=== PATIENT | male | born 1980 | race Hispanic/Latino ===

== ENCOUNTER 2017-01-15 07:45 | Observation (INO) | payer SELFPAY ==
--- NOTE | 2017-01-15 11:23 | HP ---
DATE OF ADMISSION: 01/15/2017 HISTORY OF PRESENT ILLNESS: A 36-year-old man presented to emergency department in [place]. The patient gives a history of insidious onset of periumbilical abdominal pain which started approximately 36 hours. Pain was rated at 5-6/10 onset, described as crampy without any radiation. Pain is now in the right lower quadrant where it has persisted. This pain is associated with multiple episodes of nausea, but no emesis. The patient denies any diarrhea or unexplained weight loss. He reports some chills since this morning. He has been anorexic, last meal was yesterday. Workup here was suspicious for acute appendicitis for which patient was transferred to [facility] in [place], [place] for followup care. At the time of my evaluation, the patient reports pain now at 7/10 and is generalized. He denies any fevers. PAST MEDICAL HISTORY: Significant for epilepsy. SURGICAL HISTORY: Denies any previous surgeries. SOCIAL HISTORY: He is employed as manual labor at a local ranch. He denies any cigarette smoking, ethanol or illicit drug abuse. FAMILY HISTORY: Patient denies any family history of diabetes mellitus, hypertension, heart disease or cancer. CURRENT MEDICATIONS: He takes Tegretol 400 mg q.a.m. and 200 mg q.p.m. ALLERGIES: Patient denies any known drug allergies. REVIEW OF SYSTEMS: Ten point review of systems essentially unremarkable except for as stated in past medical history and chief complaint. PHYSICAL EXAMINATION: GENERAL: This reveals a 36-year-old normally developed man who is otherwise coherent and interactive and appears stated age. The patient is alert and oriented x3, appears to be in moderate acute distress secondary to abdominal pain. VITAL SIGNS: Includes blood pressure 128/77, pulse 69, respiration 18, temperature 98.2 degrees Fahrenheit, oxygen saturation 98% on room air. HEENT: Examination reveals normocephalic and atraumatic. Pupils are equal, round, and reactive to light and accommodation. Extraocular muscles are intact bilaterally. No sclerae icterus is present. Oral mucosa is pink and moist. No lesions are noted. NECK: Supple. No palpable lymphadenopathy or thyromegaly present. HEART: Reveals regular rate and rhythm, no murmurs or gallops auscultated. LUNGS: Clear to auscultation bilaterally. Breathing is regular and unlabored. ABDOMEN: Soft and protuberant. He has diffuse tenderness to palpation, worse in the right lower quadrant. He has a positive rebound. Liver and spleen are otherwise nonpalpable below costal margins. EXTREMITIES: Reveals 2+ radial and pedal pulses bilaterally. He has no ankle edema present. NEUROLOGIC: Reveals no focal deficits present. LABORATORY DATA AND IMAGING: Pertinent laboratory findings today includes CBC of 10 in [place] with 11,300 white blood cells, hemoglobin 15.2, hematocrit is 44.3, and platelet count is 180,000. Metabolic profile today includes sodium 141, potassium 3.6, chloride is 101, bicarbonate 32, BUN 15, creatinine is 0.79, glucose 106. AST and ALT are both normal at 33 and 34 respectively. Serum amylase is normal at 51. I have reviewed the CT scan of the abdomen and pelvis which is remarkable for dilated retrocecal appendix with periappendiceal fat stranding. Although I do not see any pneumoperitoneum, there is a small amount of free fluid associated with this inflammatory process. IMPRESSION: Acute appendicitis with localized peritonitis and likely perforation. PLAN: Laparoscopic appendectomy. Above findings and plan have been discussed with the patient who indicates understanding of information given. I have advised him of the risks and benefits of the proposed surgery. Risks include, but not limited to bleeding, infection, injury to bowel and surrounding structures. The patient indicates understanding of this information and has given consent for this admission and surgical intervention. GRISELDA
[2017-01-15] MEDS ORDERED: Ondansetron HCl/PF 4 MG/2 ML Vial ONE (12:22)
[2017-01-15] MEDS ORDERED: Succinylcholine Chloride 20 MG/ML 10 ml SYRINGE FS ONE (12:22)
[2017-01-15] MEDS ORDERED: Dexamethasone 20 MG/5 ML VIAL ONE (12:22)
[2017-01-15] MEDS ORDERED: Lidocaine 2% PF 10 ML AMP (For Epidural Use) ONE (12:22)
[2017-01-15] MEDS ORDERED: Propofol 200 MG/20 ML VIAL ONE (12:22)
[2017-01-15] MEDS ORDERED: Ondansetron HCl/PF 4 MG/2 ML Vial IVP PRN ×2 (13:59→14:06)
[2017-01-15] MEDS ORDERED: Dextrose 5% in Water 1,000 ML IV PRN (13:59)
[2017-01-15] MEDS ORDERED: Dextrose 50% Abboject 50 ML SYRINGE SLOW IVP PRN (13:59)
[2017-01-15] MEDS ORDERED: Promethazine HCl 25 MG/ML VIAL IM PRN ×2 (13:59→14:06)
[2017-01-15] MEDS ORDERED: traMADol HCl 50 MG TAB PO PRN ×2 (14:01)
[2017-01-15] MEDS ORDERED: Promethazine HCl 25 MG/ML VIAL SLOW IVP PRN (14:06)
[2017-01-15] MEDS ORDERED: HYDROmorphone 2 MG/ML VIAL SLOW IVP PRN (14:06)
[2017-01-15 16:21] VITALS: BMI 27.2
[2017-01-15] MEDS: Ketorolac Tromethamine 30 MG/ML VIAL IVP SCH ×2 (18:22→23:44)
[2017-01-15] MEDS: Acetaminophen 500 MG TAB PO SCH ×2 (18:23→23:44)
[2017-01-15] MEDS: Piperacillin/Tazobactam 3.375 GM in Sodium Chloride 0.9% 100 ML IVPB SCH ×2 (18:25→23:45)
--- NOTE | 2017-01-15 18:56 | OP ---
DATE OF PROCEDURE: 01/15/2017 PREOPERATIVE DIAGNOSIS: Acute appendicitis with generalized peritonitis. POSTOPERATIVE DIAGNOSIS: Acute appendicitis with generalized peritonitis. SURGERY PERFORMED: Laparoscopic appendectomy. SURGEON: Aron Giron D.O. ANESTHESIA: General endotracheal. ESTIMATED BLOOD LOSS: 10 mL FLUIDS GIVEN: 1300 mL crystalloids. SPONGE AND INSTRUMENT COUNT: Certified as correct x2. COMPLICATIONS: None apparent at the time of operation. INDICATIONS FOR PROCEDURE: A 36-year-old man presented with abdominal pain. Clinical and radiographic examination was consistent with acute appendicitis for which patient was brought to the operating room for appendectomy. FINDINGS: Consistent with a retrocecal appendix with suppuration and contained abscess. Free fluid was noted in the pelvis as well. DESCRIPTION OF PROCEDURE: Informed consent obtained from the patient who was brought to the operati ng room and placed in supine position. Following general anesthesia, abdomen was sterilely prepped and draped in the usual fashion. The skin below the umbilicus was infiltrated with 0.25% Marcaine w ith epinephrine. A small curvilinear infraumbilical incision was made using an 11 scalpel. Umbilic al stalk was grasped with Mitch and elevated. Veress needle was inserted through the incision and placed in the peritoneal cavity through which the abdomen was insufflated with 2.5 liters of CO2 gas . Following abdominal insufflation, Veress needle was removed and 5 mm trocar was introduced using a Visiport under laparoscopy. Laparoscopy confirmed proper placement of the port, no injuries to un derlying structures. Additional laparoscopy reveals the right lateral gutter completely encased by omental adhesions. Under direct laparoscopy, a 5 mm suprapubic and 12 mm left lower quadrant ports were placed after the overlying skin was infiltrated with 0.25% Marcaine with epinephrine and approp riate incisions made. The patient was placed in a Trendelenburg position, rotated to his left. I i ntroduced Prestige grasper through the left lower quadrant port using this to bluntly take down omen hubert adhesions to reveal the cecum, which is completely plastered to the anterior abdominal wall. We then used the Prestige grasper to bluntly take down adhesions to allow us to mobilize the cecum med ially. Retrocecal appendix was then encountered, grasped with an Endo [place] forceps and this was elevated. I created a rent through the mesoappendix at the base using a [place] dissector. Endo G IA with a blue load was then used to divide the appendix at the appendicocecal junction. The mesoap pendix was serially divided using white load of Endo-SELENA. The appendix itself was delivered of the abdominal cavity using an EndoCatch. Operative site was irrigated with saline, noting good hemostas is. Finding no other pathology, laparoscopy was terminated. Fascia of the left lower quadrant port site was closed using 0 Vicryl suture and Endo closure device under laparoscopy. The abdomen was d esufflated. All ports and instruments were removed and accounted for. Skin incisions were then shelby sed using 4-0 Monocryl suture in subcuticular fashion. Dermabond was applied. The patient tolerate d the operation without any apparent complication and was returned to recovery room in satisfactory condition.
[2017-01-15] MEDS: Famotidine/PF 20 mg/2ml Vial SLOW IVP SCH (20:16)
[2017-01-15] MEDS: Lactated Ringer's 1,000 ML IV SCH (20:16)
[2017-01-15] MEDS ORDERED: FLU VACC QS2017-18 36 mo. & older 0.5 ML SYRINGE IM ONE (21:00)
[2017-01-15] MEDS ORDERED: PARoxetine 20 MG TAB PO PRN (22:01)
[2017-01-16] MEDS: Famotidine 20 MG TAB PO SCH ×2 (03:07→09:49)
[2017-01-16 05:34] LABS: #Basophils 0.1 thou/uL (0.0-0.2); #Eosinphils 0.1 thou/uL (0.0-0.7); #Lymphocytes 1.6 thou/uL (1.20-3.40); #Monocytes 1.1 thou/uL (0.11-0.59); #Neutrophils 7.3 thou/uL (1.40-6.50); %Basophils 0.5 % (0.0-1.0); %Eosinophils 0.6 % (0.0-10.0); %Lymphocytes 16.3 % (21.0-51.0); %Monocytes 10.6 % (0.0-10.0); Hematocrit 41.4 % (42.0-52.0); Mean Platelet Volume 8.4 fL (7.4-10.4); Red Blood Cell (RBC) Count 4.46 mill/uL (4.70-6.10); White Blood Cell (WBC) Count 10.1 thou/uL (4.8-10.8)
[2017-01-16 05:47] LABS: Anion Gap 10 mmol/L (10-20); BUN (Urea Nitrogen) 14 mg/dL (8.9-20.6); Calc. Creatinine Clearance 145 mL/min (70-130); Calcium 8.6 mg/dL (7.8-10.44); Carbon Dioxide 28 mmol/L (22-29); Chloride 102 mmol/L (98-107); Estimated GFR-MDRD Greater than 90
[2017-01-16] MEDS: Piperacillin/Tazobactam 3.375 GM in Sodium Chloride 0.9% 100 ML IVPB SCH ×2 (06:16→12:19)
[2017-01-16] MEDS: Ketorolac Tromethamine 30 MG/ML VIAL IVP SCH ×2 (06:17→12:19)
[2017-01-16] MEDS: Acetaminophen 500 MG TAB PO SCH ×2 (06:17→12:20)
[2017-01-16] MEDS: Lactated Ringer's 1,000 ML IV SCH (06:28)
[2017-01-16] MEDS: Famotidine/PF 20 mg/2ml Vial SLOW IVP SCH (11:15)
[2017-01-16 16:10] VITALS: BP 113/68; TEMP 98.3
--- NOTE | 2017-01-16 22:48 | DIS ---
ADMISSION DIAGNOSIS: Acute appendicitis with likely perforation. CONSULTATIONS: None. PROCEDURES: Laparoscopic appendectomy. SUMMARY: The patient is a 36-year-old man who was brought to the emergency room with a chi ef complaint of right lower quadrant pain, fevers, anorexia, and nausea. The patient underwent eval uation and examination and was noted to have an acute appendicitis with possible perforation. He wa s taken to the operating room to undergo his laparoscopic appendectomy. He tolerated this well and the patient would be admitted overnight for pain control and continue antibiotics. This morning, th e patient was tolerating a diet. He was ambulatory and his pain was controlled. 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 The patient and his agreed with this plan and stated they understood.
== END 2017-01-16 16:10 | disposition home or self-care (01) ==
LOC: ERS 07:45 → SURG A 15:33
PROVIDERS: ADMIT Surgery; ATTEND Surgery
DX: K37 Unspecified appendicitis (principal); F41.9 Anxiety disorder, unspecified; G40.909 Epilepsy, unspecified, not intractable, without status epilepticus; Z79.899 Other long term (current) drug therapy
CPT/HCPCS: 36415; 80048; 85025; 88304; 90471; 90682; 96360; 96361; 96365; 96366; 96375; 96376; G0008; G0378; J1100; J1885; J2001; J2405; J2543; J2704; J7050; Q2036; S0028